=== PATIENT | male | born 1985 | race Two or more races ===

== ENCOUNTER 2017-02-06 11:06 | Emergency (ER) | payer OTHER ==
[~2017-02-06] VITALS: Ht 180.3 cm; Wt 95.0 kg
[2017-02-06 11:13] VITALS: BP 134/81; PULSE 80; RESP 15; TEMP 98.6; O2SAT 96
[2017-02-06] MEDS ORDERED: SODIUM CHLOR 0.9% 1000 ML INJ 1,000 ML IV SCH (11:30)
[2017-02-06] MEDS ORDERED: FAMOTIDINE 20 MG/2 ML VIAL IV PUSH ONE (11:30)
[2017-02-06] MEDS ORDERED: methylPREDNISolone SOD SUCC 125 MG/2 ML VIAL IV PUSH ONE (11:30)
--- NOTE | 2017-02-06 12:55 | PD ---
HPI Chief Complaint: Allergic/Adverse Reaction Time Seen by Provider: 11:17 Travel History International Travel<30 days: No Contact w/Intl Traveler<30days: No Traveled to known affect area: No History of Present Illness HPI This is a 31-year-old male who was receiving allergy shots for dust mites in an per diem nurse office when he started to have swelling of his eyes and face progressing to a rash all over his body, itchy, constant, with some throat discomfort. He was given epinephrine in the office as well as a dose of Benadryl and transferred to the emergency department. Currently he reports diffuse itching but no lightheadedness, dizziness, nausea, abdominal pain, shortness of breath or difficulty breathing. He says he's had the shots multiple times in the past and has never had a reaction like this. PFSH Past Medical History Medical History: Denies Significant Hx Diminished Hearing: No Tetanus Vaccination: > 5 Years Influenza Vaccination: No Past Surgical History Oral Surgery: Yes Social History Alcohol Use: No Tobacco Use: No Substance Use: No Allergies-Medications (Allergen,Severity, Reaction): Uncoded Allergies: allergy shot for dustmites (Allergy, Severe, Anaphylaxis, 02/06/17) Reported Meds & Prescriptions Reported Meds & Active Scripts Active No Active Prescriptions or Reported Medications Review of Systems Except as stated in HPI: all other systems reviewed are Neg Physical Exam Narrative GENERAL:Well appearing, no acute distress SKIN: Diffuse urticarial rash HEAD: Atraumatic. Normocephalic. EYES: Pupils equal and round. No injection or drainage. Some periOrbital swelling ENT: Moist mucous membranes NECK: Trachea midline. CARDIOVASCULAR: Regular rate and rhythm. No murmur appreciated. RESPIRATORY: Clear to auscultation. Breath sounds equal bilaterally. GASTROINTESTINAL: Abdomen soft, non-tender, nondistended. MUSCULOSKELETAL: No obvious deformities. NEUROLOGICAL: Awake and alert. No obvious cranial nerve deficits. Moving all extremities. PSYCHIATRIC: Appropriate mood and affect; insight and judgment normal. Data Data Last Documented VS Vital Signs Date Time Temp Pulse Resp B/P Pulse Ox O2 Delivery O2 Flow Rate FiO2 02/06/17 11:23 18 97 Room Air 02/06/17 11:13 98.6 80 134/81 Orders Sodium Chlor 0.9% 1000 Ml Inj (Ns 1000 M (02/06/17 11:30) Methylprednisolone So Succ Inj (Solumedr (02/06/17 11:30) Famotidine Inj (Pepcid Inj) (02/06/17 11:30) MDM Medical Decision Making Medical Screen Exam Complete: Yes Emergency Medical Condition: Yes Interpretation(s) Afebrile, no tachycardia, normotensive Differential Diagnosis Acute allergic reaction, anaphylaxis, urticaria Narrative Course This is a 31-year-old male who presents to the emergency department having an acute allergic reaction following an allergy shot and an per diem nurse office. Patient overhead any respiratory difficulty. He did receive epinephrine at the office. Here I administered IV steroids and famotidine as well as IV fluids. Patient reports he feels much better. He was observed for 3 hours and had no recurrence of symptoms. I think he's safe for discharge Diagnosis Primary Impression: Acute allergic reaction Qualified Code: T78.40XA - Acute allergic reaction, initial encounter Patient Instructions: General Instructions Additional Instructions: If you develop swelling of the throat or coughing a lot, wheezing or trouble breathing, throwing up or having diarrhea, feeling dizzy or passing out, or spreading of your rash return to the emergency room immediately as you may be having a life threatening allergic reaction. Complete your course of steroids and take benadryl every 4 hours for the next 48 hours and then as needed for itching or other symptoms. Med/Other Pt SpecificInfo: Prescription(s) given Scripts Diphenhydramine 25 Mg Cap25 Mg PO Q6H PRN (ALLERGIES) 2 Days Ref 0 Prov:Jeri Cazares MD 02/06/17 Prednisone 20 Mg Tab40 Mg PO DAILY 4 Days Prov:Jeri Cazares MD 02/06/17 Disposition: 01 DISCHARGE HOME Condition: Stable Jeri Cazares MD Feb 06, 2017 12:55
[2017-02-06 13:30] VITALS: BP 109/69; PULSE 63; RESP 20; O2SAT 97
[2017-02-06] MEDS ORDERED: DIPH25CA PO (13:59)
[2017-02-06] MEDS ORDERED: PRED20 PO (13:59)
[2017-02-06 15:00] VITALS: BP 150/75
== END 2017-02-06 15:00 | disposition home or self-care (01) ==
LOC: NEPC 11:06
DX: T78.40XA Allergy, unspecified, initial encounter (principal); R21 Rash and other nonspecific skin eruption; L29.9 Pruritus, unspecified; X58.XXXA Exposure to other specified factors, initial encounter; Y92.531 Health care provider office as the place of occurrence of the external cause
CPT/HCPCS: 96361; 96374; 96375; 99283; J2930; J7030